=== PATIENT | female | born 1935 | race Asian ===

== ENCOUNTER 2022-06-03 08:50 | Day surgery (SDC) | payer MEDICARE, OTHER ==
[~2022-06-03] VITALS: Ht 147.3 cm; Wt 63.2 kg
[~2022-06-03 08:50] MED LIST: ASCO500 GT; CHOL25TA4 GT; DIPH25 GT; FERR325T27 GT; FentaNYL CITRATE PF 100 MCG/2 ML VIAL ONE; GABA-1181 GT; HEPA500018 SQ; IPRA4AER IH; MELA3TAB89 PO; MIDAZOLAM HCL 5 MG/ML VIAL ONE; MULT-1203 GT; OXYC-708 PO; PANT-31 PO; SODIUM CHLORIDE 0.9% 1,000 ML IV ONE; SODIUM CHLORIDE 0.9% 1,000 ML ONE; TRAZ-257 PO
[2022-06-03] MEDS ORDERED: LIDOCAINE 2% 11 ML JELLY TP ONE (08:51)
[2022-06-03] MEDS ORDERED: ALBUTEROL SULFATE 2.5 MG/0.5 ML NEB SOLUTION NEB ONE (08:51)
[2022-06-03] MEDS ORDERED: LIDOCAINE 4% 50 ML SOLUTION TP ONE (08:51)
[2022-06-03] MEDS ORDERED: BENZOCAINE 20% 50 MCG/SPRAY 57 GM TP ONE (08:51)
[2022-06-03 09:32] LABS: GLUCOMETER DEV NAME(LOC) SDS.; GLUCOSE,POINT OF CARE 81 MG/DL (70-110)
[2022-06-03] MEDS ORDERED: MethylPREDNISolone SOD SUCC 125 MG/2 ML VIAL IVP ONE (09:45)
[2022-06-03] MEDS ORDERED: MethylPREDNISolone SOD SUCC 125 MG/2 ML VIAL ONE (10:33)
[2022-06-03 11:36] LABS: GLUCOMETER DEV NAME(LOC) SDS.; GLUCOSE,POINT OF CARE 80 MG/DL (70-110)
[2022-06-03] MEDS ORDERED: OXYGEN THERAPY IH SCH (20:00)
== END 2022-06-03 13:35 ==
LOC: SURGERY 08:50
PROVIDERS: ATTEND Internal Medicine Critical Care Medicine
DX: J38.4 Edema of larynx (principal); B37.0 Candidal stomatitis; Z79.899 Other long term (current) drug therapy; Z86.73 Personal history of transient ischemic attack (TIA), and cerebral infarction without residual deficits; M19.90 Unspecified osteoarthritis, unspecified site; Z87.01 Personal history of pneumonia (recurrent); Z93.0 Tracheostomy status; Z93.1 Gastrostomy status; Z88.8 Allergy status to other drugs, medicaments and biological substances; E11.9 Type 2 diabetes mellitus without complications; F32.9 Major depressive disorder, single episode, unspecified; Z98.890 Other specified postprocedural states; Z20.822 Contact with and (suspected) exposure to COVID-19
CPT/HCPCS: 31623; 82962; 87206; 87101; 87220; 87070; 87186; 31624; 94640; 71045; 87015; J3010; J2930; J2250; Q9967; J7030; J7613; Z7610